=== PATIENT | male | born 1990 | race Caucasian/White ===

== ENCOUNTER 2021-08-02 19:09 | Emergency (ER) | payer OTHER ==
[2021-08-02 19:53] LABS: HEMOGLOBIN 15.7 gm/dl (14.0-17.5); RED BLOOD COUNT 5.12 M/UL (4.20-5.50); WHITE BLOOD COUNT 9.7 K/UL (4.5-11.0)
[2021-08-02] MEDS ORDERED: CEPHALEXIN500 M1 PO (20:29)
[2021-08-02 20:48] LABS: BUN/CREATININE RATIO 15 (0-10)
== END 2021-08-02 20:45 | disposition home or self-care (01) ==
LOC: ER1 19:09
PROVIDERS: Nurse Practitioner
DX: S61.432A Puncture wound without foreign body of left hand, initial encounter (principal); L03.114 Cellulitis of left upper limb; X58.XXXA Exposure to other specified factors, initial encounter; Y99.0 Civilian activity done for income or pay
CPT/HCPCS: 80053; 85025; 96374; 99283; J0696